=== PATIENT | male | born 1990 | race Caucasian/White ===

== ENCOUNTER → 2019-11-10 09:53 | Outpatient (BNVA) | payer OTHER, SELFPAY | PROVIDERS: Visit Provider Internal Medicine | DX: Z11.59 Encounter for screening for other viral diseases (principal) | CPT/HCPCS: 87635 ==

== ENCOUNTER 2019-11-13 06:35 | Outpatient (CLI) | payer SELFPAY ==
--- NOTE | 2019-11-13 14:44 | PFTS_ITS ---
Date of Study:11/13/19 Date of Dictation: MECHANICS: Forced vital capacity (FVC) is normal. Forced expiratory volume in one second (FEV1) is reduced. FEV1/FVC is reduced. FLOW VOLUME LOOP: Reduced flow with scooping. LUNG VOLUMES: Not measured DIFFUSING CAPACITY FOR CARBON MONOXIDE: Not measured INTERPRETATION: The prebronchodilator spirometry is consistent with severe obstruction. There is a significant postbronchodilator response with complete normalization of the forced vital capacity. The postbronchodilator spirometry is consistent with moderate obstruction. Lung volumes are not measured. Gas exchange (DLCO) is not measured. MTDD
== END 2019-11-13 06:36 | disposition home or self-care (01) ==
PROVIDERS: Visit Provider Internal Medicine
DX: J45.909 Unspecified asthma, uncomplicated (principal)
CPT/HCPCS: 94060; J7611